=== PATIENT | female | born 1945 | race Caucasian/White ===

== ENCOUNTER 2020-12-09 06:50 | Day surgery (SDC) | payer MEDICARE, OTHER ==
[~2020-12-09] VITALS: Ht 167.6 cm; Wt 109.1 kg
[2020-12-09] VITALS (11 sets, daily range): BP systolic 104–129; BP diastolic 45–61; PULSE 49–60; TEMP 97.7–98.4
[2020-12-09] MEDS ORDERED: SYNTHROID0.1 MG/TAB PO (07:58)
[2020-12-09] MEDS ORDERED: AVAPRO300 M1 PO (07:58)
[2020-12-09] MEDS ORDERED: NORVASC 5MG5 MG/TAB PO (07:58)
[2020-12-09] MEDS ORDERED: BETAPACE160 MG PO (07:59)
[2020-12-09] MEDS ORDERED: LIPITOR 40MG TA40 MG PO (07:59)
[2020-12-09] MEDS ORDERED: GLUCOPHAGE850 MG/TAB PO (07:59)
[2020-12-09] MEDS ORDERED: COUMADIN4 MG PO (08:00)
[2020-12-09] MEDS ORDERED: LOVENOX 100100 MG/ML SQ (08:01)
[2020-12-09] MEDS ORDERED: NOVOLOG FLEX100 U/ML SQ (08:02)
[2020-12-09] MEDS ORDERED: MULTI-VITAMIN W1 TA1 PO (08:03)
[2020-12-09] MEDS ORDERED: PEPCID 20MG TAB20 MG PO (08:03)
[2020-12-09] MEDS ORDERED: LANTUS100 U/ML SQ (08:03)
[2020-12-09] MEDS ORDERED: CALCIUM 600MG+D1 TAB PO (08:04)
--- NOTE | 2020-12-09 16:13 | NUR ---
Patient's ride name is Nik Farrar and can be contacted at or .
--- NOTE | 2020-12-09 18:29 | NUR ---
Pt arrived to floor at 1545 to room and immediagely tried to get out of bed. Moved to closer room by nurses station and pt has not tried to get out of bed since. Pt c/o pain to R chest, arm is over head for comfort but pt sleeping between disturbances and c/o pain when awake. Dressing is CDI with LIDA draining sanguinous drainage. Called sister Erika in [place] and she would like updates if changes occur. Number is [phone]. Pt resting in bed, does not want supper at this time but drinking ice water. VSS. WIll continue to monitor and give beside shift report to nightift nurse who will resume care.
[2020-12-10 00:45] VITALS: BP 109/49; PULSE 50; TEMP 97.6
[2020-12-10 03:28] VITALS: BP 122/55; PULSE 50; TEMP 98.1
[2020-12-10 07:44] VITALS: BP 106/56; PULSE 55; TEMP 98.4
--- NOTE | 2020-12-10 09:17 | NUR ---
DORIS met with the patient to discuss plan. The patient lives alone in [place]. She states that her sister, Alissa, also lives in [place], but that Alissa is in the hospital right now. She reports independence with ADLs and has a cane, walker, and wheelchair available if needed. The patient's PCP is Dr. Aren Landrum and she receives her medications from [facility]. She reports no difficulties obtaining her meds. The patient does not have a DPOA-HC, but she was interested in obtaining a form. DORIS provided. The patient states that she is , does not have any children, and that her parents are . She states that she has two living sisters: Alissa and Erika (ph#[phone]). Erika lives in [place]. The patient plans to return home upon discharge. No additional needs at this time. *Discharge plan: home*
--- NOTE | 2020-12-10 10:05 | NUR ---
Initial visit; Patient thanked [facility] Drier for offering comfort and encouragement and prayer for healing. [facility] prayed for rapid and thorough healing.
[2020-12-10 11:39] VITALS: BP 106/44; PULSE 58; TEMP 98.1
--- NOTE | 2020-12-10 14:43 | NUR ---
I met with patient this morning at the oncology nurse and gave her a pillow to help support her arm. We talked about resources for mastectomy supplies and the [employer] catalog was provided. 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 Contact information was provided along with support.
[2020-12-10 16:00] VITALS: BP 105/46; PULSE 55; TEMP 98.3
--- NOTE | 2020-12-10 18:00 | NUR ---
Patient has been doing well today. She is getting around in the room without issues. Denies nausea and pain. Her pain has been well controlled with the tylenol. She stated that her incision feels numb. She is staying tonight because has been having a lot of output from her LIDA drain. Lovenox held as ordered by Dr Guidry. He seen her this afternoon and changed her dressing. No other changes at this time. Call light within reach.
[2020-12-10 19:03] VITALS: BP 106/46; PULSE 55; TEMP 98.6
[2020-12-11 04:12] VITALS: BP 122/44; PULSE 56; TEMP 98.2
--- NOTE | 2020-12-11 05:16 | NUR ---
resting quietly, VSS table, LIDA drain to R chest with 45ml out during shift, no s/s of hypo/hyper glycemia, no complaints of pain ambulates with x1 assist to bathroom, will continue to montior.
[2020-12-11 06:49] LABS: HEMATOCRIT 37.2 % (37.0-47.0); HEMOGLOBIN 11.7 g/dl (12.5-16.0)
[2020-12-11 08:00] VITALS: BP 136/61; PULSE 55; TEMP 98.9
--- NOTE | 2020-12-11 09:39 | NUR ---
Follow-up visit; Patient thanked Jewel Stringer for looking in on her again this morning and wishing her well and offering God's blessings.
--- NOTE | 2020-12-11 11:00 | NUR ---
Patient will be discharging this afternoon. Her ride won't be here until 1330. Discussed if she could handle her LIDA drain. She said yes. She stated she lives alone but has people she call if she needs help. Patient denies pain and nausea. Dr Guidry removed dressing and changed the gauze to LIDA drain. She stated her ride will be here at about 1330. No other changes at this time. Call light js abraham.
--- NOTE | 2020-12-11 13:10 | NUR ---
Patient is discharging home. Discharge instructions discussed with patient. No questions verbalized. INT discontinued. Had patient demonstrate how to epmty her drain, discussed how to keep track of what she empties. Gave her a paper to write down output. Explained Dr Guidry wants her to stop the lovenox and restart her coumadin. No questions verbalized. Copies of discharge instructions sent with patient. All belongings packed up and sent with patient. Explained when follow up appointment is. Patient walked out via wheel chair by the [facility] GILL[facility]PIE.
== END 2020-12-11 13:10 | disposition home or self-care (01) ==
LOC: SDCO 06:50 → SURG 16:13 → SDCO 12-11 13:10
PROVIDERS: Surgery
DX: C50.411 Malignant neoplasm of upper-outer quadrant of right female breast (principal); I10 Essential (primary) hypertension; I48.91 Unspecified atrial fibrillation; E11.9 Type 2 diabetes mellitus without complications; E78.5 Hyperlipidemia, unspecified; E03.9 Hypothyroidism, unspecified; Z17.0 Estrogen receptor positive status [ER+]; Z79.890 Hormone replacement therapy; Z79.4 Long term (current) use of insulin; Z79.82 Long term (current) use of aspirin; Z79.01 Long term (current) use of anticoagulants; Z79.899 Other long term (current) drug therapy; Z87.891 Personal history of nicotine dependence
CPT/HCPCS: OP; A9541; J0690; J2250; J2405; J2795; J3010; J7030